=== PATIENT | female | born 1955 | race Caucasian/White ===

== ENCOUNTER → 2022-01-05 | Day surgery (SDC) | payer MEDICARE ==
[~2022-01-05] MED LIST: ALDACTONE100 MG PO; ARMOUR THYROID60 MG PO; ATORVASTATIN CA10 MG PO; DEXAMETHASONE PHOS 24 MG/ML 10ML VIAL ONE; DEXAMETHASONE SOD PHOS INJ 4 MG/ML SDV ONE; EPINEPHRINE HCL 1:1000 1ML 1 MG/ML AMP ONE; KETOROLAC TROMETHAMINE 30 MG/ML VIAL ONE; LIDOCAINE HCL 2% LOCAL INJ 5 ML SDV VIAL INJ ONE; MIDAZOLAM HCL 2 MG/2 ML VIAL ONE; MULTIVITAMIN1 EACH PO; OFLOXACIN 0.3% (OTIC SOL) 5 ML BTL ONE; ONDANSETRON HCL INJ 2MG/ML 2ML 2 MG/ML VIAL ONE; POVIDONE IODINE 0.05% 0.05 % ML PO ONE; PROPOFOL IV EMULSION 10 MG/ML 20 ML VIAL ONE; RESTASIS1 EACH; SEVOFLURANE INHAL SOLN 250 ML PEN BTL ONE
[2022-01-05 10:56] VITALS: BP 128/72
== END | disposition home or self-care (01) ==
LOC: OR 08:20
PROVIDERS: ATTEND Otolaryngology Otolaryngology/Facial Plastic Surgery
DX: H91.21 Sudden idiopathic hearing loss, right ear (principal); H93.11 Tinnitus, right ear; L53.9 Erythematous condition, unspecified; E03.9 Hypothyroidism, unspecified; E78.5 Hyperlipidemia, unspecified; Z79.899 Other long term (current) drug therapy
CPT/HCPCS: 69436; 93005; J0171; J1100; J1885; J2001; J2250; J2405; J2704